=== PATIENT | female | born 1990 | race Caucasian/White ===

== ENCOUNTER 2021-08-06 08:50 | Emergency (ER) | payer OTHER ==
[~2021-08-06] VITALS: Ht 170.2 cm; Wt 70.3 kg
[~2021-08-06 08:50] MED LIST: SINGULAIR10 MG; WELLBUTRIN SR150 MG
[2021-08-06] MEDS ORDERED: KETO10TA2 PO (11:04)
== END 2021-08-06 15:36 | disposition home or self-care (01) ==
LOC: ER 08:50
DX: S90.121A Contusion of right lesser toe(s) without damage to nail, initial encounter (principal); X58.XXXA Exposure to other specified factors, initial encounter; Y93.01 Activity, walking, marching and hiking; Y92.480 Sidewalk as the place of occurrence of the external cause; Y99.8 Other external cause status

== ENCOUNTER → 2025-11-14 | Emergency (ER) | payer OTHER ==
[~2025-11-14] VITALS: Ht 170.2 cm; Wt 65.8 kg
[~2025-11-14] MED LIST changes: +ALBUTEROL SULFATE 3 ML/2.5 MG AMPUL.NEB IH ONE; +ALBUTEROL SULFATE 3 ML/2.5 MG AMPUL.NEB IH SCH; +CODEINE/PROMETHAZINE HCL 1 ML ML PO ONE; +KETO10TA2 PO; +METHYLPREDNISOLONE ACETATE 40 MG/ML VIAL IU ONE; +METHYLPREDNISOLONE SOD SUCC 40 MG VIAL ONE
== END | disposition left against medical advice (07) ==
LOC: ER 06:43
PROVIDERS: Emergency Medicine
DX: J20.9 Acute bronchitis, unspecified (principal); F32.9 Major depressive disorder, single episode, unspecified